=== PATIENT | male | born 1955 | race Caucasian/White ===

== ENCOUNTER 2017-04-20 08:57 | Outpatient (CLI) | payer BC ==
[~2017-04-20 08:57] MED LIST: ESCI10TA PO; METO-395 PO
[2017-04-21 11:29] LABS: BASOPHILS # (AUTO) 0.1 X10'3 (0-0.2); BASOPHILS % (AUTO) 1.6 % (0-1); EOSINOPHILS # (AUTO) 0.1 X10'3 (0-0.9); EOSINOPHILS % (AUTO) 1.6 % (0-6); HEMATOCRIT 43.8 % (42.0-52.0); HEMOGLOBIN 15.3 g/dl (14.0-17.9); LYMPHOCYTES # (AUTO) 3.3 X10'3 (1.1-4.8); LYMPHOCYTES % (AUTO) 43.6 % (21-51); MEAN CORPUSCULAR HEMOGLOBIN 32.9 PG (27.0-31.0); MEAN CORPUSCULAR HGB CONC 34.9 % (33.0-36.5); MEAN CORPUSCULAR VOLUME 94.2 FL (78-98); MEAN PLATELET VOLUME 8.1 FL (7.4-10.4); MONOCYTES # (AUTO) 0.8 X10'3 (0-0.9); MONOCYTES % (AUTO) 10.4 % (2-12); NEUTROPHILS # (AUTO) 3.2 X10'3 (1.8-7.7); NEUTROPHILS % (AUTO) 42.8 % (42-75); PLATELET COUNT 229 X10'3 (140-440); RED BLOOD COUNT 4.66 X10'6 (4.70-6.10); RED CELL DISTRIBUTION WIDTH 12.8 % (11.5-14.5); WHITE BLOOD COUNT 7.5 X10'3 (4.5-11.0)
[2017-04-21 12:05] LABS: ALANINE AMINOTRANSFERASE 33 U/L (12-78); ALKALINE PHOSPHATASE 69 IU/L (46-116); ANION GAP 8 (8-16); ASPARTATE AMINO TRANSFERASE 27 U/L (10-37); BILIRUBIN,TOTAL 0.5 MG/DL (0.1-1.0); BLOOD UREA NITROGEN 13 MG/DL (7-18); BUN/CREATININE RATIO 11.4 (5.4-32.0); CALCIUM 8.9 MG/DL (8.5-10.1); CHLORIDE 106 MMOL/L (99-107); CHOL/HDL RATIO 3.5 (0.00-4.99); CHOLESTEROL 209 MG/DL (0-200); CREATININE 1.14 MG/DL (0.60-1.10); GLUCOSE 103 MG/DL (70-104); HDL CHOLESTEROL 60 MG/DL (35-60); LDL CHOLESTEROL 110 MG/DL (50-100); POTASSIUM 4.5 MMOL/L (3.5-5.1); SODIUM 143 MMOL/L (135-145); TOTAL CARBON DIOXIDE 28.7 MMOL/L (24-32); TOTAL PROTEIN 8.1 G/DL (6.4-8.2); TRIGLYCERIDES 182 MG/DL (20-135); eGFR 66 ML/MIN
== END 2017-04-20 23:59 | disposition home or self-care (01) ==
LOC: LAB 08:57
PROVIDERS: ATTEND Physician Assistant
DX: Z00.01 Encounter for general adult medical examination with abnormal findings (principal); Z12.5 Encounter for screening for malignant neoplasm of prostate; M50.323 Other cervical disc degeneration at C6-C7 level; M43.12 Spondylolisthesis, cervical region
CPT/HCPCS: 36415; 72052; 80053; 80061; 84153; 84154; 84443; 85025